=== PATIENT | male | born 1955 | race Caucasian/White ===

== ENCOUNTER 2018-05-19 10:16 | Day surgery (SDC) | payer OTHER ==
[~2018-05-19 10:16] MED LIST: PROPOFOL 200 MG INJ
[2018-05-19] MEDS: MOXIFLOXACIN 0.5% 3 ML OPH OPER (11:26)
[2018-05-19] MEDS: CYCLOPENTOLATE 2% 2 ML OPH OPER (11:28)
[2018-05-19] MEDS: PHENYLephrine 10% 5 ML OPH OPER (11:28)
[2018-05-19] MEDS: NEPAFENAC 0.1% 3 ML OPH OPER (11:29)
[2018-05-19] MEDS ORDERED: TIMOLOL 0.5% 5 ML OPH (11:35)
[2018-05-19] MEDS ORDERED: SODIUM BICARBONATE (IV ADD) 50 ML (11:35)
[2018-05-19] MEDS ORDERED: LIDOCAINE 1% (MPF) 10 ML INJ (11:35)
[2018-05-19] MEDS ORDERED: EPINEPHrine 1 MG INJ (11:36)
[2018-05-19] MEDS ORDERED: LIDOCAINE 2% (SDV) 5 ML INJ (11:37)
[2018-05-19] MEDS ORDERED: FENTAnyl 50 MCG/ML VIAL IV (13:00)
[2018-05-19] MEDS ORDERED: ONDANSETRON 4 MG INJ IV (13:00)
[2018-05-19] MEDS: LIDOCAINE 1% (MPF) 5 ML VIAL INJ (13:05)
== END 2018-05-19 15:30 | disposition home or self-care (01) ==
LOC: SDS 10:16
DX: H25.12 Age-related nuclear cataract, left eye (principal); E66.01 Morbid (severe) obesity due to excess calories; Z68.41 Body mass index [BMI] 40.0-44.9, adult
CPT/HCPCS: 66984